=== PATIENT | male | born 1970 | race African-American/Black ===

== ENCOUNTER 2019-01-24 08:40 | Day surgery (SDC) | payer OTHER ==
[~2019-01-24] VITALS: Ht 175.3 cm; Wt 76.2 kg
[~2019-01-24 08:40] MED LIST: BUPR50TA PO; GABA-845 PO; LIDOCAINE 2% INJ 100 MG/5 ML SDV (FOR ANES.) As Ordered ONE; NEUR300C PO; NS 1,000 ML IV ONE; PRAZ1CAP PO; PRAZ5CAP PO; PROPOFOL 200 MG/20 ML VIAL As Ordered ONE; ROSU40TA4 PO
--- NOTE | 2019-01-24 10:04 | ROOR ---
Patient Name: Willard Osborne Procedure Date: 01/24/2019 9:51 AM Date of : 1970 Age: 48 Room: [facility] Gender: Male Note Status: Finalized Procedure: Total Colonoscopy to Cecum Indications: Screening for colorectal malignant neoplasm Providers: Teddy Duarte MD Referring MD: Beba TAYLOR [facility] Beba TAYLOR [facility], Admin. Requesting Provider: Medicines: Monitored Anesthesia Care Complications: No immediate complications. Procedure: Pre-Anesthesia Assessment: - The heart rate, respiratory rate, oxygen saturations, blood pressure, adequacy of pulmonary ventilation, and response to care were monitored throughout the procedure. The Colonoscope was introduced through the anus and advanced to the cecum, identified by appendiceal orifice and ileocecal valve. The colonoscopy was performed without difficulty. The patient tolerated the procedure well. The quality of the bowel preparation was excellent. Findings: The perianal and digital rectal examinations were normal. Non-bleeding internal hemorrhoids were found during retroflexion. The hemorrhoids were small and Grade I (internal hemorrhoids that do not prolapse). No other significant abnormalities were identified in a careful examination of the remainder of the colon. The exam was otherwise without abnormality on direct and retroflexion views. Impression: - Non-bleeding internal hemorrhoids. - The examination was otherwise normal on direct and retroflexion views. - No specimens collected. - The exam was otherwise normal to the cecum. Recommendation: - Patient has a contact number available for emergencies. The signs and symptoms of potential delayed complications were discussed with the patient. Return to normal activities tomorrow. Written discharge instructions were provided to the patient. - High fiber diet. - Discharge patient to home. - Continue present medications. - Repeat colonoscopy in 10 years for screening purposes. - Return to referring physician. - The findings and recommendations were discussed with the patient's family. Teddy Duarte MD Teddy Duarte MD 01/24/2019 10:04:36 AM Electronically signed by Teddy Duarte MD Number of Addenda: 0 Note Initiated On: 01/24/2019 9:51 AM Estimated Blood Loss: Estimated blood loss: none.
[2019-01-24 10:30] VITALS: BP 112/87
== END 2019-01-24 10:46 | disposition home or self-care (01) ==
LOC: M OPP 08:40
PROVIDERS: ATTEND Internal Medicine Gastroenterology
DX: Z12.11 Encounter for screening for malignant neoplasm of colon (principal); K64.0 First degree hemorrhoids; E78.5 Hyperlipidemia, unspecified; M19.90 Unspecified osteoarthritis, unspecified site; F32.9 Major depressive disorder, single episode, unspecified; F41.9 Anxiety disorder, unspecified; Z79.899 Other long term (current) drug therapy